=== PATIENT | female | born 1975 | race Caucasian/White ===

== ENCOUNTER 2021-08-27 09:29 | Emergency (ER) | payer OTHER ==
[~2021-08-27] VITALS: Ht 162.6 cm; Wt 90.7 kg
[2021-08-27] MEDS ORDERED: KETO10TA2 PO (13:44)
[2021-08-27] MEDS ORDERED: CYCLOBENZAPRINE10 MG PO (13:44)
[2021-08-27] MEDS ORDERED: NORFLEX100MG PO (13:44)
== END 2021-08-27 13:52 | disposition home or self-care (01) ==
LOC: ER 09:29
DX: M54.50 Low back pain, unspecified (principal)